=== PATIENT | male | born 1955 | race Caucasian/White ===

== ENCOUNTER 2019-04-02 14:28 | Inpatient (IN) | payer OTHER ==
[~2019-04-02] VITALS: Ht 167.6 cm; Wt 71.2 kg
[2019-04-02 16:02] LABS: BASO % 0 % (0-3); EOS # 0.4 x10^3/uL (0.0-0.7); EOS % 3 % (0-3); HEMATOCRIT 41.7 % (39.0-53.0); HEMOGLOBIN 13.9 g/dL (13.0-17.5); LYMPH # 2.2 x10^3/uL (1.0-4.8); LYMPH % 19 % (24-48); MEAN CORPUSCULAR HEMOGLOBIN 31 pg (25-35); MEAN CORPUSCULAR HGB CONC 33 g/dL (31-37); MEAN CORPUSCULAR VOLUME 92 fL (79-100); MONO # 1.1 x10^3/uL (0.0-1.1); MONO % 10 % (0-9); NEUT # 7.5 x10^3/uL (1.8-7.7); NEUT % 67 % (31-73); PLATELET COUNT 359 x10^3/uL (140-400); RED BLOOD COUNT 4.54 x10^6/uL (4.30-5.70); RED CELL DISTRIBUTION WIDTH 14.8 % (11.5-14.5); WHITE BLOOD COUNT 11.2 x10^3/uL (4.0-11.0)
[2019-04-02 16:11] LABS: PROTHROMBIN TIME PATIENT 13.2 SEC (11.7-14.0)
[2019-04-02 16:21] LABS: CALCIUM 8.5 mg/dL (8.5-10.1); CREATININE 0.9 mg/dL (0.7-1.3); GFR 84.7; POTASSIUM 5.9 mmol/L (3.5-5.1)
[2019-04-02 16:32] LABS: ALBUMIN 3.1 g/dL (3.4-5.0); ALBUMIN/GLOBULIN RATIO 0.6 (1.0-1.7); TOTAL BILIRUBIN 0.4 mg/dL (0.2-1.0); TOTAL PROTEIN 7.9 g/dL (6.4-8.2)
[2019-04-02] MEDS ORDERED: IV NORMAL SALINE 1000ML BAG 1,000 ML IV ONE (16:45)
[2019-04-02] MEDS ORDERED: PANTOPRAZOLE IV PUSH 40 MG VIAL. IVP ONE (16:45)
[2019-04-02] MEDS: PANTOPRAZOLE SODIUM IV DRIP 80 MG in IV NORMAL SALINE 100ML 100 ML IV SCH (17:02)
[2019-04-02] MEDS ORDERED: ONDANSETRON PF 4 MG/2 ML VIAL. IVP PRN (17:30)
[2019-04-02] MEDS ORDERED: TEMAZEPAM 7.5 MG CAPSULE PO PRN (17:30)
[2019-04-02] MEDS ORDERED: ACETAMINOPHEN 500 MG TABLET PO PRN (17:30)
[2019-04-02] MEDS ORDERED: MORPHINE SULFATE 2 MG/ML VIAL. IV PRN (17:30)
[2019-04-02] MEDS ORDERED: HYDROcodone/APAP 5/325MG 1 TAB TABLET PO PRN (17:30)
[2019-04-02 17:43] LABS: GASTRIC OB PAT POSITIVE (NEG)
[2019-04-02] MEDS ORDERED: SODIUM POLYSTYRENE SULFON/SORB 15 GM/60 ML ORAL.SUSP PO ONE (18:00)
--- NOTE | 2019-04-02 18:06 | PDOC1 ---
History and Physical Date of Admission Date of Admission DATE: 04/02/19 TIME: 17:59 Identification/Chief Complaint Chief Complaint melena and coffee ground emesis Source Source: Caregiver, Chart review, Patient History of Present Illness History of Present Illness Hx of PUD and H pylori, > 10 yrs ago, quit smoking x 2 mos now (remembers exact date) and occ etoh drinker, 2 days melena and now coffee ground emesis so went to ER, Refuses a EMILY, but willing to give stool sample, Hgb normal but sinus tachy 120s. On asa 81 for remote CAD with 1 existing stent and [facility] for need of GI NO abd pain, NOt on nsaid at home. STable and very conversant (long pleasant stories), K 5.,6 not on any supplementation, BUN midly high, NOrmal creat Past Medical History Cardiovascular: CAD CENTRAL NERVOUS SYSTEM: TIA GI: Other (HEp C not needing tx, - reoslved) Past Surgical History Past Surgical History: Other (EGD > 10 yrs ago) Family History Family History: Hypertension Social History Smoke: Quit ALCOHOL: occassional Drugs: None Current Medications Current Medications Current Medications Sodium Chloride 1,000 ml @ 1,000 mls/hr 1X ONCE IV Last administered on 04/02/19at 17:01; Start 04/02/19 at 16:45; Stop 04/02/19 at 17:44; Status DC Pantoprazole Sodium 80 mg/ Sodium Chloride 100 ml @ 10 mls/hr Q10H IV Last administered on 04/02/19at 17:02; Start 04/02/19 at 16:45 Pantoprazole Sodium (PROTONIX VIAL for IV PUSH) 40 mg 1X ONCE IVP Last administered on 04/02/19at 17:02; Start 04/02/19 at 16:45; Stop 04/02/19 at 16:46; Status DC Allergies Allergies: Coded Allergies: Penicillins (Verified Allergy, Intermediate, 04/02/19) ROS Review of System as per HPI, the rest 14 pt neg Physical Exam General: Alert, Oriented X3, Cooperative, No acute distress HEENT: Atraumatic, PERRLA, EOMI Lungs: Clear to auscultation, Normal air movement Heart: S1S2, no thrills, no rubs, no gallops, no murmurs, other (sinus tachy) Abdomen: Normal bowel sounds, Soft, No tenderness, No hepatosplenomegaly, No masses Male Genitals Exam: normal genitalia, normal prostate Rectal Exam: not examined PELVIC: Nml ext genitalia Extremities: No clubbing, No cyanosis, No edema, Normal pulses, No tenderness/swelling Skin: No rashes, No breakdown, No significant lesion Neuro: Normal gait, Normal speech, Strength at 5/5 X4 ext, Normal tone, Sensation intact, Cranial nerves 3-12 NL, Reflexes 2+ Psych/Mental Status: Mental status NL, Mood NL Vitals Vitals Vital Signs Date Time Temp Pulse Resp B/P (MAP) Pulse Ox O2 Delivery O2 Flow Rate FiO2 04/02/19 15:57 120 101/74 (83) 97 Room Air 04/02/19 14:35 97.7 17 97.7 Labs Labs Laboratory Tests Test 04/02/19 15:40 04/02/19 17:31 White Blood Count 11.2 x10^3/uL (4.0-11.0) Red Blood Count 4.54 x10^6/uL (4.30-5.70) Hemoglobin 13.9 g/dL (13.0-17.5) Hematocrit 41.7 % (39.0-53.0) Mean Corpuscular Volume 92 fL (79-100) Mean Corpuscular Hemoglobin 31 pg (25-35) Mean Corpuscular Hemoglobin Concent 33 g/dL (31-37) Red Cell Distribution Width 14.8 % (11.5-14.5) Platelet Count 359 x10^3/uL (140-400) Neutrophils (%) (Auto) 67 % (31-73) Lymphocytes (%) (Auto) 19 % (24-48) Monocytes (%) (Auto) 10 % (0-9) Eosinophils (%) (Auto) 3 % (0-3) Basophils (%) (Auto) 0 % (0-3) Neutrophils # (Auto) 7.5 x10^3/uL (1.8-7.7) Lymphocytes # (Auto) 2.2 x10^3/uL (1.0-4.8) Monocytes # (Auto) 1.1 x10^3/uL (0.0-1.1) Eosinophils # (Auto) 0.4 x10^3/uL (0.0-0.7) Basophils # (Auto) 0.0 x10^3/uL (0.0-0.2) Prothrombin Time 13.2 SEC (11.7-14.0) Prothromb Time International Ratio 1.0 (0.8-1.1) Activated Partial Thromboplast Time 29 SEC (24-38) Sodium Level 137 mmol/L (136-145) Potassium Level 5.9 mmol/L (3.5-5.1) Chloride Level 104 mmol/L (98-107) Carbon Dioxide Level 22 mmol/L (21-32) Anion Gap 11 (6-14) Blood Urea Nitrogen 45 mg/dL (8-26) Creatinine 0.9 mg/dL (0.7-1.3) Estimated GFR (Cockcroft-Gault) 84.7 BUN/Creatinine Ratio 50 (6-20) Glucose Level 117 mg/dL (70-99) Calcium Level 8.5 mg/dL (8.5-10.1) Total Bilirubin 0.4 mg/dL (0.2-1.0) Aspartate Amino Transf (AST/SGOT) 28 U/L (15-37) Alanine Aminotransferase (ALT/SGPT) 74 U/L (16-63) Alkaline Phosphatase 123 U/L (46-116) Total Protein 7.9 g/dL (6.4-8.2) Albumin 3.1 g/dL (3.4-5.0) Albumin/Globulin Ratio 0.6 (1.0-1.7) Gastric Fluid Occult Blood Positive (NEG) Laboratory Tests Test 04/02/19 15:40 04/02/19 17:31 White Blood Count 11.2 x10^3/uL (4.0-11.0) Red Blood Count 4.54 x10^6/uL (4.30-5.70) Hemoglobin 13.9 g/dL (13.0-17.5) Hematocrit 41.7 % (39.0-53.0) Mean Corpuscular Volume 92 fL (79-100) Mean Corpuscular Hemoglobin 31 pg (25-35) Mean Corpuscular Hemoglobin Concent 33 g/dL (31-37) Red Cell Distribution Width 14.8 % (11.5-14.5) Platelet Count 359 x10^3/uL (140-400) Neutrophils (%) (Auto) 67 % (31-73) Lymphocytes (%) (Auto) 19 % (24-48) Monocytes (%) (Auto) 10 % (0-9) Eosinophils (%) (Auto) 3 % (0-3) Basophils (%) (Auto) 0 % (0-3) Neutrophils # (Auto) 7.5 x10^3/uL (1.8-7.7) Lymphocytes # (Auto) 2.2 x10^3/uL (1.0-4.8) Monocytes # (Auto) 1.1 x10^3/uL (0.0-1.1) Eosinophils # (Auto) 0.4 x10^3/uL (0.0-0.7) Basophils # (Auto) 0.0 x10^3/uL (0.0-0.2) Prothrombin Time 13.2 SEC (11.7-14.0) Prothromb Time International Ratio 1.0 (0.8-1.1) Activated Partial Thromboplast Time 29 SEC (24-38) Sodium Level 137 mmol/L (136-145) Potassium Level 5.9 mmol/L (3.5-5.1) Chloride Level 104 mmol/L (98-107) Carbon Dioxide Level 22 mmol/L (21-32) Anion Gap 11 (6-14) Blood Urea Nitrogen 45 mg/dL (8-26) Creatinine 0.9 mg/dL (0.7-1.3) Estimated GFR (Cockcroft-Gault) 84.7 BUN/Creatinine Ratio 50 (6-20) Glucose Level 117 mg/dL (70-99) Calcium Level 8.5 mg/dL (8.5-10.1) Total Bilirubin 0.4 mg/dL (0.2-1.0) Aspartate Amino Transf (AST/SGOT) 28 U/L (15-37) Alanine Aminotransferase (ALT/SGPT) 74 U/L (16-63) Alkaline Phosphatase 123 U/L (46-116) Total Protein 7.9 g/dL (6.4-8.2) Albumin 3.1 g/dL (3.4-5.0) Albumin/Globulin Ratio 0.6 (1.0-1.7) Gastric Fluid Occult Blood Positive (NEG) VTE Prophylaxis Ordered VTE Prophylaxis Devices: Contraindicated VTE Pharmacological Prophylaxi: Contraindicated Assessment/Plan Assessment/Plan Melena x 2 days Coffee ground emesis x 1 day HX PUD and H pylori > 10 yrs ago voia EGD - s/p tripe or quadruple abx therapy Ex smoker (quit 2 mos ago) Occ etoh Recent TIA December 2018 on ASA 81 HX CAD with 1 stent Sinus tachy NO anemia POA Hyperkalemia 5.6 PLAN: 2 MN PPI gtt tele floor - sinus tachy GI consult Clears tonyt then NPO post MN Hold ASA NSAIDS IVF while NPO KAyexylate x 1 - also to get stool sample plus high K Recheck K and [facility]mr [facility] Seen at ER Dw MIdl evel FULL CODE TREVOR HEAD MD Apr 02, 2019 18:06
--- NOTE | 2019-04-02 18:21 | PHYS DOC ---
Past Medical History Past Medical History: COPD, P.U.D., TIA, Other Additional Past Medical Histor: H.PYLORI (MADDISON GOMEZ APRN) Past Surgical History: Angioplasty, Other Additional Past Surgical Histo: CARDAIC STENTS (MADDISON GOMEZ APRN) Alcohol Use: Occasionally Drug Use: Marijuana (MADDISON GOMEZ APRN) Adult General Chief Complaint Chief Complaint: GI PROBLEM HPI HPI Patient is a 63 year old male, accompanied by his friend, who presents to the emergency Department today with complaints of a black stool this morning and coughing up bright red blood. On arrival to the room patient states that he spit up some coffee-ground emesis. He reports he quit smoking cigarettes a few months ago. He denies any abdominal pain, nausea, vomiting, diarrhea, shortness of breath, chest pain, or wheezing. He states that for several days food has caused his stomach to hurt when he eats. He states he does drink alcohol but usually only drinks one time a week. He does smoke marijuana from time to time usually twice a week. Patient states that he is not in any pain at this time. He reports a history of a bleeding ulcer and H. pylori along time ago that he took protonix for but he states he no longer takes protonix. Pt states he had a TIA in December of this year and reports that he takes a baby aspirin daily since then. (MADDISON GOMEZ APRN) Review of Systems Review of Systems Constitutional: Denies fever or chills [] Eyes: Denies redness, or eye pain [] HENT: Denies nasal congestion or sore throat [] Respiratory: Denies cough or shortness of breath [] Cardiovascular: No additional information not addressed in HPI [] GI: see HPI : Denies dysuria or hematuria [] Musculoskeletal: Denies back pain or joint pain [] Integument: Denies rash or skin lesions [] Neurologic: Denies headache, focal weakness or sensory changes [] All other systems were reviewed and found to be within normal limits, except as documented in this note. (MADDISON GOMEZ APRN) Current Medications Current Medications Current Medications Medications (Trade) Dose Ordered Sig/Ana Start Time Stop Time Status Last Admin Dose Admin Acetaminophen (Tylenol) 500 mg PRN Q6HRS PRN 04/02/19 17:30 Acetaminophen/ Codeine Phosphate (Tylenol #3) 1 tab PRN Q6HRS PRN 04/02/19 17:30 Acetaminophen/ Hydrocodone Bitart (Lortab 5/325) 1 tab PRN Q4HRS PRN 04/02/19 17:30 Morphine Sulfate (Morphine Sulfate) 1 mg PRN Q2HR PRN 04/02/19 17:30 Ondansetron HCl (Zofran) 4 mg PRN Q6HRS PRN 04/02/19 17:30 Pantoprazole Sodium (PROTONIX VIAL for IV PUSH) 40 mg 1X ONCE 04/02/19 16:45 04/02/19 16:46 DC 04/02/19 17:02 40 MG Pantoprazole Sodium 80 mg/ Sodium Chloride 100 ml @ 10 mls/hr Q10H 04/02/19 16:45 04/03/19 03:08 10 MLS/HR Sodium Chloride 1,000 ml @ 100 mls/hr Q10H 04/02/19 17:30 04/03/19 00:14 100 MLS/HR Temazepam (Restoril) 7.5 mg PRN QHS PRN 04/02/19 17:30 04/02/19 21:15 7.5 MG (JEM BRADLEY DO) Allergies Allergies Allergies Coded Allergies Type Severity Reaction Last Updated Verified Penicillins Allergy Intermediate 04/02/19 Yes (JEM BRADLEY DO) Physical Exam Physical Exam Constitutional: Well developed, well nourished, no acute distress, non-toxic appearance. [] HENT: Normocephalic, atraumatic, bilateral external ears normal, oropharynx moist, no oral exudates, nose normal. [] Eyes: PERRLA, EOMI, conjunctiva normal, no discharge. [] Neck: Normal range of motion, no stridor. [] Cardiovascular:Heart rate regular tachycardic rhythm, no murmur [] Lungs & Thorax: Bilateral breath sounds clear to auscultation in upper lobes bilat, coarse in bilateral posterior bases [] Abdomen: Bowel sounds normal, soft, no tenderness, no masses, no pulsatile masses. [] Rectal exam was declined by patient. Skin: Warm, dry, no erythema, no rash. [] Back: No tenderness Extremities: No cyanosis, ROM intact, no edema. [] Neurologic: Alert and oriented X 3, no focal deficits noted. [] Psychologic: Affect normal, judgement normal, mood normal. [] (MADDISON GOMEZ APRN) Current Patient Data Vital Signs Vital Signs Date Time Temp Pulse Resp B/P (MAP) Pulse Ox O2 Delivery O2 Flow Rate FiO2 04/02/19 17:27 120 20 109/77 (88) 96 Room Air 04/02/19 14:35 97.7 97.7 (BRADLEYJEM MARTINEZ DO) Lab Values Laboratory Tests Test 04/02/19 15:40 04/02/19 17:31 White Blood Count 11.2 x10^3/uL (4.0-11.0) H Red Blood Count 4.54 x10^6/uL (4.30-5.70) Hemoglobin 13.9 g/dL (13.0-17.5) Hematocrit 41.7 % (39.0-53.0) Mean Corpuscular Volume 92 fL (79-100) Mean Corpuscular Hemoglobin 31 pg (25-35) Mean Corpuscular Hemoglobin Concent 33 g/dL (31-37) Red Cell Distribution Width 14.8 % (11.5-14.5) H Platelet Count 359 x10^3/uL (140-400) Neutrophils (%) (Auto) 67 % (31-73) Lymphocytes (%) (Auto) 19 % (24-48) L Monocytes (%) (Auto) 10 % (0-9) H Eosinophils (%) (Auto) 3 % (0-3) Basophils (%) (Auto) 0 % (0-3) Neutrophils # (Auto) 7.5 x10^3/uL (1.8-7.7) Lymphocytes # (Auto) 2.2 x10^3/uL (1.0-4.8) Monocytes # (Auto) 1.1 x10^3/uL (0.0-1.1) Eosinophils # (Auto) 0.4 x10^3/uL (0.0-0.7) Basophils # (Auto) 0.0 x10^3/uL (0.0-0.2) Prothrombin Time 13.2 SEC (11.7-14.0) Prothrombin Time INR 1.0 (0.8-1.1) Activated Partial Thromboplast Time 29 SEC (24-38) Sodium Level 137 mmol/L (136-145) Potassium Level 5.9 mmol/L (3.5-5.1) H Chloride Level 104 mmol/L (98-107) Carbon Dioxide Level 22 mmol/L (21-32) Anion Gap 11 (6-14) Blood Urea Nitrogen 45 mg/dL (8-26) H Creatinine 0.9 mg/dL (0.7-1.3) Estimated GFR (Cockcroft-Gault) 84.7 BUN/Creatinine Ratio 50 (6-20) H Glucose Level 117 mg/dL (70-99) H Calcium Level 8.5 mg/dL (8.5-10.1) Total Bilirubin 0.4 mg/dL (0.2-1.0) Aspartate Amino Transferase (AST) 28 U/L (15-37) Alanine Aminotransferase (ALT) 74 U/L (16-63) H Alkaline Phosphatase 123 U/L (46-116) H Total Protein 7.9 g/dL (6.4-8.2) Albumin 3.1 g/dL (3.4-5.0) L Albumin/Globulin Ratio 0.6 (1.0-1.7) L Gastric Fluid Occult Blood Positive (NEG) Laboratory Tests 04/02/19 15:40 Laboratory Tests 04/02/19 15:40 (JEM BRADLEY DO) EKG EKG 1453- sinus tachycardia rate 124, no STEMI read by Dr. Wheatley[] (MADDISON GOMEZ APRN) Radiology/Procedures Radiology/Procedures [] (MADDISON GOMEZ APRN) Course & Med Decision Making Course & Med Decision Making Pertinent Labs and Imaging studies reviewed. (See chart for details) dx: GI Bleed CBC WBC 11.2 Hgb and Hct WNL, PT/INR unremarkable; CMP K 5.9, BUN 45, gluc 117, BUN/Plasterer Foreman ratio 50, ALT 74, ALK phos 123; gastric occult positive Pt declined rectal exam VSS, EKG sinus tach no acute changes Pt was given 1L NS, 40 mg of IV protonix and a protonix gtt was initiated. 1735- Spoke with Dr. Feng who is the admitting physician, and care was assumed following discussion of patient. Patient's vital signs tachycardic otherwise stable. Patient remains afebrile, appears nontoxic, respirations even and unlabored. Patient will be admitted to the med/tele floor. Patient's case and plan of care also discussed with Dr. Wheatley [] (MADDISON GOMEZ APRN) Dragon Disclaimer Dragon Disclaimer This electronic medical record was generated, in whole or in part, using a voice recognition dictation system. (MADDISON GOMEZ APRN) Departure Departure Impression: Primary Impression: GI bleed Disposition: ADMITTED INPATIENT Admitting Physician: ABBY Hui) (MADDISON GOMEZ APRN) Condition: STABLE Referrals: HENRI BREWSTER MD (PCP) Attending Signature Attending Signature I have reviewed the PA/TUB WASHER's note and plan of care. I was available for consultation as needed during the patient's visit in the emergency department. I agree with the clinical impression, plan, and disposition. (JEM BRADLEY DO) Problem Qualifiers Primary Impression: GI bleed GI bleed type/associated pathology: unspecified gastrointestinal hemorrhage type Qualified Codes: K92.2 - Gastrointestinal hemorrhage, unspecified MADDISON GOMEZ APRN Apr 02, 2019 18:21 JEM BRADLEY DO Apr 03, 2019 05:27
[2019-04-02 19:00] VITALS: BP 114/80
[2019-04-02] MEDS ORDERED: ASPI81TA11 PO (20:36)
[2019-04-02] MEDS ORDERED: BUDE10.22 IH (20:36)
[2019-04-02] MEDS ORDERED: ALBU2.5V8 INH (20:36)
[2019-04-03] MEDS: IV NORMAL SALINE 1000ML BAG 1,000 ML IV SCH ×5 (00:14→23:02)
--- NOTE | 2019-04-03 01:00 | NUR ---
Awaiting patient's urine and stool samples, patient did have smear of black stool on tissue, unable to scrape any off into the cup, informed to still need specimen, and urine for culture, patient verbalizes to understand.
[2019-04-03] MEDS: PANTOPRAZOLE SODIUM IV DRIP 80 MG in IV NORMAL SALINE 100ML 100 ML IV SCH ×2 (03:08→13:20)
[2019-04-03 03:12] VITALS: BP 115/81
[2019-04-03 04:36] LABS: HEMATOCRIT 37.1 % (39.0-53.0); HEMOGLOBIN 12.3 g/dL (13.0-17.5)
[2019-04-03 07:00] VITALS: BP 117/75
[2019-04-03] MEDS ORDERED: FLU VAX QS 2019-20 (36MOS+)/PF 0.5 ML SYRINGE. VAX IM ONE (09:00)
--- NOTE | 2019-04-03 09:03 | PDOC ---
PROGRESS NOTES Chief Complaint Chief Complaint Melena x 2 days Coffee ground emesis x 1 day HX PUD and H pylori > 10 yrs ago voia EGD - s/p tripe or quadruple abx therapy Ex smoker (quit 2 mos ago) Occ etoh Recent TIA December 2018 on ASA 81 HX CAD with 1 stent Sinus tachy NO anemia POA Hyperkalemia 5.6 History of Present Illness History of Present Illness no overnight calls asleep, i did not awaken I saw him less than 2 hrs ago at ER GI has yet to see hgb 12 from normal No more reports of melena or coffee ground to me by staff K normalized after kayexylate PLAn: Await GI, keep NPO just in case Otherwise if no procedures today will be able to start clears HH tmr ff up FOBT Vitals Vitals Vital Signs Date Time Temp Pulse Resp B/P (MAP) Pulse Ox O2 Delivery O2 Flow Rate FiO2 04/03/19 07:00 97.4 117 20 117/75 (89) 96 Room Air 97.4 Physical Exam General: Alert, Oriented X3, Cooperative, No acute distress Abdomen: Normal bowel sounds, Soft, No tenderness, No hepatosplenomegaly, No masses Extremities: No clubbing, No cyanosis, No edema, Normal pulses, No tendernes s/swelling Skin: No rashes, No breakdown, No significant lesion Labs LABS Laboratory Tests Test 04/02/19 15:40 04/02/19 17:31 04/03/19 03:15 White Blood Count 11.2 x10^3/uL (4.0-11.0) Red Blood Count 4.54 x10^6/uL (4.30-5.70) Hemoglobin 13.9 g/dL (13.0-17.5) 12.3 g/dL (13.0-17.5) Hematocrit 41.7 % (39.0-53.0) 37.1 % (39.0-53.0) Mean Corpuscular Volume 92 fL (79-100) Mean Corpuscular Hemoglobin 31 pg (25-35) Mean Corpuscular Hemoglobin Concent 33 g/dL (31-37) 33 g/dL (31-37) Red Cell Distribution Width 14.8 % (11.5-14.5) Platelet Count 359 x10^3/uL (140-400) Neutrophils (%) (Auto) 67 % (31-73) Lymphocytes (%) (Auto) 19 % (24-48) Monocytes (%) (Auto) 10 % (0-9) Eosinophils (%) (Auto) 3 % (0-3) Basophils (%) (Auto) 0 % (0-3) Neutrophils # (Auto) 7.5 x10^3/uL (1.8-7.7) Lymphocytes # (Auto) 2.2 x10^3/uL (1.0-4.8) Monocytes # (Auto) 1.1 x10^3/uL (0.0-1.1) Eosinophils # (Auto) 0.4 x10^3/uL (0.0-0.7) Basophils # (Auto) 0.0 x10^3/uL (0.0-0.2) Prothrombin Time 13.2 SEC (11.7-14.0) Prothromb Time International Ratio 1.0 (0.8-1.1) Activated Partial Thromboplast Time 29 SEC (24-38) Sodium Level 137 mmol/L (136-145) Potassium Level 5.9 mmol/L (3.5-5.1) 3.9 mmol/L (3.5-5.1) Chloride Level 104 mmol/L (98-107) Carbon Dioxide Level 22 mmol/L (21-32) Anion Gap 11 (6-14) Blood Urea Nitrogen 45 mg/dL (8-26) Creatinine 0.9 mg/dL (0.7-1.3) Estimated GFR (Cockcroft-Gault) 84.7 BUN/Creatinine Ratio 50 (6-20) Glucose Level 117 mg/dL (70-99) Calcium Level 8.5 mg/dL (8.5-10.1) Total Bilirubin 0.4 mg/dL (0.2-1.0) Aspartate Amino Transf (AST/SGOT) 28 U/L (15-37) Alanine Aminotransferase (ALT/SGPT) 74 U/L (16-63) Alkaline Phosphatase 123 U/L (46-116) Total Protein 7.9 g/dL (6.4-8.2) Albumin 3.1 g/dL (3.4-5.0) Albumin/Globulin Ratio 0.6 (1.0-1.7) Gastric Fluid Occult Blood Positive (NEG) Review of Systems Review of Systems asleep Assessment and Plan Assessmemt and Plan Problems Medical Problems: (1) GI bleed Status: Acute Comment Review of Relevant I have reviewed the following items abby (where applicable) has been applied. Labs Laboratory Tests Test 04/02/19 15:40 04/02/19 17:31 04/03/19 03:15 White Blood Count 11.2 x10^3/uL (4.0-11.0) Red Blood Count 4.54 x10^6/uL (4.30-5.70) Hemoglobin 13.9 g/dL (13.0-17.5) 12.3 g/dL (13.0-17.5) Hematocrit 41.7 % (39.0-53.0) 37.1 % (39.0-53.0) Mean Corpuscular Volume 92 fL (79-100) Mean Corpuscular Hemoglobin 31 pg (25-35) Mean Corpuscular Hemoglobin Concent 33 g/dL (31-37) 33 g/dL (31-37) Red Cell Distribution Width 14.8 % (11.5-14.5) Platelet Count 359 x10^3/uL (140-400) Neutrophils (%) (Auto) 67 % (31-73) Lymphocytes (%) (Auto) 19 % (24-48) Monocytes (%) (Auto) 10 % (0-9) Eosinophils (%) (Auto) 3 % (0-3) Basophils (%) (Auto) 0 % (0-3) Neutrophils # (Auto) 7.5 x10^3/uL (1.8-7.7) Lymphocytes # (Auto) 2.2 x10^3/uL (1.0-4.8) Monocytes # (Auto) 1.1 x10^3/uL (0.0-1.1) Eosinophils # (Auto) 0.4 x10^3/uL (0.0-0.7) Basophils # (Auto) 0.0 x10^3/uL (0.0-0.2) Prothrombin Time 13.2 SEC (11.7-14.0) Prothromb Time International Ratio 1.0 (0.8-1.1) Activated Partial Thromboplast Time 29 SEC (24-38) Sodium Level 137 mmol/L (136-145) Potassium Level 5.9 mmol/L (3.5-5.1) 3.9 mmol/L (3.5-5.1) Chloride Level 104 mmol/L (98-107) Carbon Dioxide Level 22 mmol/L (21-32) Anion Gap 11 (6-14) Blood Urea Nitrogen 45 mg/dL (8-26) Creatinine 0.9 mg/dL (0.7-1.3) Estimated GFR (Cockcroft-Gault) 84.7 BUN/Creatinine Ratio 50 (6-20) Glucose Level 117 mg/dL (70-99) Calcium Level 8.5 mg/dL (8.5-10.1) Total Bilirubin 0.4 mg/dL (0.2-1.0) Aspartate Amino Transf (AST/SGOT) 28 U/L (15-37) Alanine Aminotransferase (ALT/SGPT) 74 U/L (16-63) Alkaline Phosphatase 123 U/L (46-116) Total Protein 7.9 g/dL (6.4-8.2) Albumin 3.1 g/dL (3.4-5.0) Albumin/Globulin Ratio 0.6 (1.0-1.7) Gastric Fluid Occult Blood Positive (NEG) Laboratory Tests Test 04/02/19 15:40 04/02/19 17:31 04/03/19 03:15 White Blood Count 11.2 x10^3/uL (4.0-11.0) Red Blood Count 4.54 x10^6/uL (4.30-5.70) Hemoglobin 13.9 g/dL (13.0-17.5) 12.3 g/dL (13.0-17.5) Hematocrit 41.7 % (39.0-53.0) 37.1 % (39.0-53.0) Mean Corpuscular Volume 92 fL (79-100) Mean Corpuscular Hemoglobin 31 pg (25-35) Mean Corpuscular Hemoglobin Concent 33 g/dL (31-37) 33 g/dL (31-37) Red Cell Distribution Width 14.8 % (11.5-14.5) Platelet Count 359 x10^3/uL (140-400) Neutrophils (%) (Auto) 67 % (31-73) Lymphocytes (%) (Auto) 19 % (24-48) Monocytes (%) (Auto) 10 % (0-9) Eosinophils (%) (Auto) 3 % (0-3) Basophils (%) (Auto) 0 % (0-3) Neutrophils # (Auto) 7.5 x10^3/uL (1.8-7.7) Lymphocytes # (Auto) 2.2 x10^3/uL (1.0-4.8) Monocytes # (Auto) 1.1 x10^3/uL (0.0-1.1) Eosinophils # (Auto) 0.4 x10^3/uL (0.0-0.7) Basophils # (Auto) 0.0 x10^3/uL (0.0-0.2) Prothrombin Time 13.2 SEC (11.7-14.0) Prothromb Time International Ratio 1.0 (0.8-1.1) Activated Partial Thromboplast Time 29 SEC (24-38) Sodium Level 137 mmol/L (136-145) Potassium Level 5.9 mmol/L (3.5-5.1) 3.9 mmol/L (3.5-5.1) Chloride Level 104 mmol/L (98-107) Carbon Dioxide Level 22 mmol/L (21-32) Anion Gap 11 (6-14) Blood Urea Nitrogen 45 mg/dL (8-26) Creatinine 0.9 mg/dL (0.7-1.3) Estimated GFR (Cockcroft-Gault) 84.7 BUN/Creatinine Ratio 50 (6-20) Glucose Level 117 mg/dL (70-99) Calcium Level 8.5 mg/dL (8.5-10.1) Total Bilirubin 0.4 mg/dL (0.2-1.0) Aspartate Amino Transf (AST/SGOT) 28 U/L (15-37) Alanine Aminotransferase (ALT/SGPT) 74 U/L (16-63) Alkaline Phosphatase 123 U/L (46-116) Total Protein 7.9 g/dL (6.4-8.2) Albumin 3.1 g/dL (3.4-5.0) Albumin/Globulin Ratio 0.6 (1.0-1.7) Gastric Fluid Occult Blood Positive (NEG) Medications Current Medications Sodium Chloride 1,000 ml @ 1,000 mls/hr 1X ONCE IV Last administered on at 17:01; Start 04/02/19 at 16:45; Stop 04/02/19 at 17:44; Status DC Pantoprazole Sodium 80 mg/ Sodium Chloride 100 ml @ 10 mls/hr Q10H IV Last administered on 04/03/19at 03:08; Start 04/02/19 at 16:45 Pantoprazole Sodium (PROTONIX VIAL for IV PUSH) 40 mg 1X ONCE IVP Last administered on 04/02/19at 17:02; Start 04/02/19 at 16:45; Stop 04/02/19 at 16:46; Status DC Acetaminophen (Tylenol) 500 mg PRN Q6HRS PRN PO MILD PAIN / TEMP; Start 04/02/19 at 17:30 Acetaminophen/ Codeine Phosphate (Tylenol #3) 1 tab PRN Q6HRS PRN PO MODERATE PAIN; Start 04/02/19 at 17:30 Ondansetron HCl (Zofran) 4 mg PRN Q6HRS PRN IVP NAUSEA/VOMITING; Start 04/02/19 at 17:30 Temazepam (Restoril) 7.5 mg PRN QHS PRN PO INSOMNIA Last administered on 04/02/19at 21:15; Start 04/02/19 at 17:30 Morphine Sulfate (Morphine Sulfate) 1 mg PRN Q2HR PRN IV PAIN; Start 04/02/19 at 17:30 Acetaminophen/ Hydrocodone Bitart (Lortab 5/325) 1 tab PRN Q4HRS PRN PO SEVERE PAIN; Start 04/02/19 at 17:30 Sodium Chloride 1,000 ml @ 100 mls/hr Q10H IV Last administered on 04/03/19at 00:14; Start 04/02/19 at 17:30 Sodium Polystyrene Sulfonate (Kayexalate) 15 gm 1X ONCE PO Last administered on 04/02/19at 20:30; Start 04/02/19 at 18:00; Stop 04/02/19 at 18:03; Status DC Influenza Virus Vaccine Quadrival (Afluria Quad 2019-20 (3yr Up) Syringe) 0.5 ml ONCE ONCE VAX IM ; Start 04/03/19 at 09:00; Stop 04/03/19 at 09:01 Active Scripts Active Reported Low Dose Aspirin Ec (Aspirin) 81 Mg Tablet.dr 1 Tab PO DAILY Proair Hfa Inhaler (Albuterol Sulfate) 8.5 Gm Hfa.aer.ad 1 Puff INH PRN Q6HRS PRN Symbicort 80-4.5 Mcg Inhaler (Budesonide/Formoterol Fumarate) 10.2 Gm Hfa.aer.ad 2 Puff IH BID Vitals/I & O Vital Sign - Last 24 Hours 04/02/19 04/02/19 04/02/19 04/02/19 14:35 15:02 15:27 15:57 Temp 97.7 97.7 Pulse 124 124 124 120 Resp 17 B/P (MAP) 130/72 (91) 123/74 (90) 118/70 (86) 101/74 (83) Pulse Ox 96 96 96 97 O2 Delivery Room Air Room Air Room Air Room Air 04/02/19 04/02/19 04/02/19 04/02/19 16:27 16:57 17:27 17:57 Pulse 118 122 120 116 Resp 16 20 20 20 B/P (MAP) 100/68 (79) 123/84 (97) 109/77 (88) 109/76 (87) Pulse Ox 96 97 96 95 O2 Delivery Room Air Room Air Room Air Room Air 04/02/19 04/02/19 04/03/19 04/03/19 19:00 20:20 03:12 07:00 Temp 97.6 98.1 97.4 97.6 98.1 97.4 Pulse 111 111 117 Resp 20 20 20 B/P (MAP) 114/80 (91) 115/81 (92) 117/75 (89) Pulse Ox 96 95 96 O2 Delivery Room Air Room Air Room Air Room Air Intake and Output 04/02/19 04/02/19 04/03/19 15:00 23:00 07:00 Intake Total 1100 ml Balance 1100 ml TREVOR HEAD MD Apr 03, 2019 09:03
[2019-04-03 11:00] VITALS: BP 101/69
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
[2019-04-03 15:00] VITALS: BP 122/65
[2019-04-03] MEDS ORDERED: ALBU2.5V8 INH (17:04)
[2019-04-03] MEDS ORDERED: ACETAMINOPHEN 325 MG TABLET. PO PRN (17:15)
[2019-04-03] MEDS ORDERED: ALBUTEROL SULFATE 2.5 MG/3 ML NEBU. NEB PRN (17:15)
[2019-04-03] MEDS: ACETAMINOPHEN/CODEINE 300/30MG TABLET. PO PRN (17:17)
[2019-04-03] MEDS: ALBUTEROL SULFATE 2.5 MG/3 ML NEBU. NEB SCH (18:00)
[2019-04-03 19:00] VITALS: BP 113/75
[2019-04-03 19:35] LABS: BILIRUBIN,URINE NEGATIVE (NEG); CLARITY,URINE CLEAR; COLOR,URINE YELLOW; NITRITE,URINE NEGATIVE (NEG); PROTEIN,URINE NEGATIVE (NEG-TRACE); UROBILINOGEN,URINE 0.2 mg/dL (0.2 mg/dL)
[2019-04-03 19:42] LABS: BARBITURATES NEG (NEG); BENZODIAZEPINES NEG (NEG); CANNABINOIDS POS (NEG); COCAINE NEG (NEG); METHADONE NEG (NEG); OPIATES NEG (NEG); PHENCYCLIDINE NEG (NEG)
[2019-04-03 19:44] LABS: AMPHETAMINE/METHAMPHETAMINE NEG (NEG)
[2019-04-03 19:45] LABS: BACTERIA,URINE 0 /HPF (0-FEW); RBC,URINE 0 /HPF (0-2); SQUAMOUS EPITHELIAL CELL,UR FEW /LPF
[2019-04-03] MEDS: BUDESONIDE 0.5 MG/2 ML NEBU. NEB SCH (20:06)
[2019-04-03] MEDS ORDERED: NON FORMULARY ITEM (Budesonide/Formoterol Fumarate (Symbicort 80-4.5 Mcg Inhaler) 2 PUFF) IH SCH (21:00)
[2019-04-03 23:00] VITALS: BP 114/74
[2019-04-04] VITALS (13 sets, daily range): BP systolic 98–130; BP diastolic 59–84
[2019-04-04] MEDS: ACETAMINOPHEN/CODEINE 300/30MG TABLET. PO PRN (00:16)
[2019-04-04] MEDS: PANTOPRAZOLE SODIUM IV DRIP 80 MG in IV NORMAL SALINE 100ML 100 ML IV SCH (01:15)
[2019-04-04 04:44] LABS: HEMATOCRIT 31.2 % (39.0-53.0); HEMOGLOBIN 10.2 g/dL (13.0-17.5)
[2019-04-04] MEDS: BUDESONIDE 0.5 MG/2 ML NEBU. NEB SCH ×2 (07:14→21:53)
[2019-04-04] MEDS: ALBUTEROL SULFATE 2.5 MG/3 ML NEBU. NEB SCH ×4 (07:14→19:40)
--- NOTE | 2019-04-04 08:34 | PDOC ---
PROGRESS NOTES Chief Complaint Chief Complaint Melena x 2 days Coffee ground emesis x 1 day HX PUD and H pylori > 10 yrs ago voia EGD - s/p tripe or quadruple abx therapy Ex smoker (quit 2 mos ago) Occ etoh Recent TIA December 2018 on ASA 81 HX CAD with 1 stent Sinus tachy NO anemia POA Hyperkalemia 5.6 History of Present Illness History of Present Illness headache HGb dropped to 10 today from normal on admission Still some melena per his acct but no more coffee ground emesis PLAn: EGD 10 AM friday HH tmr PPI gtt Vitals Vitals Vital Signs Date Time Temp Pulse Resp B/P (MAP) Pulse Ox O2 Delivery O2 Flow Rate FiO2 04/04/19 07:59 97.5 105 18 110/66 (81) 94 Room Air 97.5 Physical Exam General: Alert, Oriented X3 Heart: Regular rate, Normal S1, Normal S2 Abdomen: Normal bowel sounds, Soft, No tenderness, No hepatosplenomegaly Extremities: No clubbing, No cyanosis, Other (scars from previous surgeries wrist) Skin: No rashes, No breakdown, No significant lesion Labs LABS Laboratory Tests Test 04/03/19 19:26 04/04/19 04:05 Urine Collection Type Unknown Urine Color Yellow Urine Clarity Clear Urine pH 6.0 Urine Specific Perry 1.020 Urine Protein Negative mg/dL (NEG-TRACE) Urine Glucose (UA) Negative mg/dL (NEG) Urine Ketones (Stick) Negative mg/dL (NEG) Urine Blood Negative (NEG) Urine Nitrite Negative (NEG) Urine Bilirubin Negative (NEG) Urine Urobilinogen Dipstick 0.2 mg/dL (0.2 mg/dL) Urine Leukocyte Esterase Small (NEG) Urine RBC 0 /HPF (0-2) Urine WBC 5-10 /HPF (0-4) Urine Squamous Epithelial Cells Few /LPF Urine Transitional Epithelial Cells Occ /LPF Urine Bacteria 0 /HPF (0-FEW) Urine Mucus Slight /LPF Urine Opiates Screen Neg (NEG) Urine Methadone Screen Neg (NEG) Urine Barbiturates Neg (NEG) Urine Phencyclidine Screen Neg (NEG) Urine Amphetamine/Methamphetamine Neg (NEG) Urine Benzodiazepines Screen Neg (NEG) Urine Cocaine Screen Neg (NEG) Urine Cannabinoids Screen Pos (NEG) Urine Ethyl Alcohol Neg (NEG) Hemoglobin 10.2 g/dL (13.0-17.5) Hematocrit 31.2 % (39.0-53.0) Mean Corpuscular Hemoglobin Concent 33 g/dL (31-37) Review of Systems Review of Systems headache, melena, all else 14 pt neg Assessment and Plan Assessmemt and Plan Problems Medical Problems: (1) GI bleed Status: Acute Comment Review of Relevant I have reviewed the following items abby (where applicable) has been applied. Labs Laboratory Tests Test 04/02/19 15:40 04/02/19 17:31 04/03/19 03:15 04/03/19 19:26 White Blood Count 11.2 x10^3/uL (4.0-11.0) Red Blood Count 4.54 x10^6/uL (4.30-5.70) Hemoglobin 13.9 g/dL (13.0-17.5) 12.3 g/dL (13.0-17.5) Hematocrit 41.7 % (39.0-53.0) 37.1 % (39.0-53.0) Mean Corpuscular Volume 92 fL (79-100) Mean Corpuscular Hemoglobin 31 pg (25-35) Mean Corpuscular Hemoglobin Concent 33 g/dL (31-37) 33 g/dL (31-37) Red Cell Distribution Width 14.8 % (11.5-14.5) Platelet Count 359 x10^3/uL (140-400) Neutrophils (%) (Auto) 67 % (31-73) Lymphocytes (%) (Auto) 19 % (24-48) Monocytes (%) (Auto) 10 % (0-9) Eosinophils (%) (Auto) 3 % (0-3) Basophils (%) (Auto) 0 % (0-3) Neutrophils # (Auto) 7.5 x10^3/uL (1.8-7.7) Lymphocytes # (Auto) 2.2 x10^3/uL (1.0-4.8) Monocytes # (Auto) 1.1 x10^3/uL (0.0-1.1) Eosinophils # (Auto) 0.4 x10^3/uL (0.0-0.7) Basophils # (Auto) 0.0 x10^3/uL (0.0-0.2) Prothrombin Time 13.2 SEC (11.7-14.0) Prothromb Time International Ratio 1.0 (0.8-1.1) Activated Partial Thromboplast Time 29 SEC (24-38) Sodium Level 137 mmol/L (136-145) Potassium Level 5.9 mmol/L (3.5-5.1) 3.9 mmol/L (3.5-5.1) Chloride Level 104 mmol/L (98-107) Carbon Dioxide Level 22 mmol/L (21-32) Anion Gap 11 (6-14) Blood Urea Nitrogen 45 mg/dL (8-26) Creatinine 0.9 mg/dL (0.7-1.3) Estimated GFR (Cockcroft-Gault) 84.7 BUN/Creatinine Ratio 50 (6-20) Glucose Level 117 mg/dL (70-99) Calcium Level 8.5 mg/dL (8.5-10.1) Total Bilirubin 0.4 mg/dL (0.2-1.0) Aspartate Amino Transf (AST/SGOT) 28 U/L (15-37) Alanine Aminotransferase (ALT/SGPT) 74 U/L (16-63) Alkaline Phosphatase 123 U/L (46-116) Total Protein 7.9 g/dL (6.4-8.2) Albumin 3.1 g/dL (3.4-5.0) Albumin/Globulin Ratio 0.6 (1.0-1.7) Gastric Fluid Occult Blood Positive (NEG) Urine Collection Type Unknown Urine Color Yellow Urine Clarity Clear Urine pH 6.0 Urine Specific Perry 1.020 Urine Protein Negative mg/dL (NEG-TRACE) Urine Glucose (UA) Negative mg/dL (NEG) Urine Ketones (Stick) Negative mg/dL (NEG) Urine Blood Negative (NEG) Urine Nitrite Negative (NEG) Urine Bilirubin Negative (NEG) Urine Urobilinogen Dipstick 0.2 mg/dL (0.2 mg/dL) Urine Leukocyte Esterase Small (NEG) Urine RBC 0 /HPF (0-2) Urine WBC 5-10 /HPF (0-4) Urine Squamous Epithelial Cells Few /LPF Urine Transitional Epithelial Cells Occ /LPF Urine Bacteria 0 /HPF (0-FEW) Urine Mucus Slight /LPF Urine Opiates Screen Neg (NEG) Urine Methadone Screen Neg (NEG) Urine Barbiturates Neg (NEG) Urine Phencyclidine Screen Neg (NEG) Urine Amphetamine/Methamphetamine Neg (NEG) Urine Benzodiazepines Screen Neg (NEG) Urine Cocaine Screen Neg (NEG) Urine Cannabinoids Screen Pos (NEG) Urine Ethyl Alcohol Neg (NEG) Test 04/04/19 04:05 Hemoglobin 10.2 g/dL (13.0-17.5) Hematocrit 31.2 % (39.0-53.0) Mean Corpuscular Hemoglobin Concent 33 g/dL (31-37) Laboratory Tests Test 04/03/19 19:26 04/04/19 04:05 Urine Collection Type Unknown Urine Color Yellow Urine Clarity Clear Urine pH 6.0 Urine Specific Perry 1.020 Urine Protein Negative mg/dL (NEG-TRACE) Urine Glucose (UA) Negative mg/dL (NEG) Urine Ketones (Stick) Negative mg/dL (NEG) Urine Blood Negative (NEG) Urine Nitrite Negative (NEG) Urine Bilirubin Negative (NEG) Urine Urobilinogen Dipstick 0.2 mg/dL (0.2 mg/dL) Urine Leukocyte Esterase Small (NEG) Urine RBC 0 /HPF (0-2) Urine WBC 5-10 /HPF (0-4) Urine Squamous Epithelial Cells Few /LPF Urine Transitional Epithelial Cells Occ /LPF Urine Bacteria 0 /HPF (0-FEW) Urine Mucus Slight /LPF Urine Opiates Screen Neg (NEG) Urine Methadone Screen Neg (NEG) Urine Barbiturates Neg (NEG) Urine Phencyclidine Screen Neg (NEG) Urine Amphetamine/Methamphetamine Neg (NEG) Urine Benzodiazepines Screen Neg (NEG) Urine Cocaine Screen Neg (NEG) Urine Cannabinoids Screen Pos (NEG) Urine Ethyl Alcohol Neg (NEG) Hemoglobin 10.2 g/dL (13.0-17.5) Hematocrit 31.2 % (39.0-53.0) Mean Corpuscular Hemoglobin Concent 33 g/dL (31-37) Medications Current Medications Sodium Chloride 1,000 ml @ 1,000 mls/hr 1X ONCE IV Last administered on 04/02/19at 17:01; Start 04/02/19 at 16:45; Stop 04/02/19 at 17:44; Status DC Pantoprazole Sodium 80 mg/ Sodium Chloride 100 ml @ 10 mls/hr Q10H IV Last administered on 04/04/19at 01:15; Start 04/02/19 at 16:45 Pantoprazole Sodium (PROTONIX VIAL for IV PUSH) 40 mg 1X ONCE IVP Last admi nistered on 04/02/19at 17:02; Start 04/02/19 at 16:45; Stop 04/02/19 at 16:46; Status DC Acetaminophen (Tylenol) 500 mg PRN Q6HRS PRN PO MILD PAIN / TEMP; Start 04/02/19 at 17:30; Stop 04/03/19 at 17:19; Status DC Acetaminophen/ Codeine Phosphate (Tylenol #3) 1 tab PRN Q6HRS PRN PO MODERATE PAIN Last administered on 04/04/19at 00:16; Start 04/02/19 at 17:30 Ondansetron HCl (Zofran) 4 mg PRN Q6HRS PRN IVP NAUSEA/VOMITING; Start 04/02/19 at 17:30 Temazepam (Restoril) 7.5 mg PRN QHS PRN PO INSOMNIA Last administered on 04/02/19at 21:15; Start 04/02/19 at 17:30 Morphine Sulfate (Morphine Sulfate) 1 mg PRN Q2HR PRN IV PAIN; Start 04/02/19 at 17:30 Acetaminophen/ Hydrocodone Bitart (Lortab 5/325) 1 tab PRN Q4HRS PRN PO SEVERE PAIN; Start 04/02/19 at 17:30 Sodium Chloride 1,000 ml @ 100 mls/hr Q10H IV Last administered on 04/03/19at 23:02; Start 04/02/19 at 17:30 Sodium Polystyrene Sulfonate (Kayexalate) 15 gm 1X ONCE PO Last administered on 04/02/19at 20:30; Start 04/02/19 at 18:00; Stop 04/02/19 at 18:03; Status DC Influenza Virus Vaccine Quadrival (Afluria Quad 2019-20 (3yr Up) Syringe) 0.5 ml ONCE ONCE VAX IM ; Start 04/03/19 at 09:00; Stop 04/03/19 at 09:01; Status DC Non-Formulary Medication (Budesonide/ Formoterol Fumarate (Symbicort 80-4.5 Mcg Inhaler)) 2 puff BID IH ; Start 04/03/19 at 21:00; Status UNV Acetaminophen (Tylenol) 650 mg PRN Q6HRS PRN PO PAIN; Start 04/03/19 at 17:15 Albuterol Sulfate (Ventolin Neb Soln) 2.5 mg PRN Q4HRS PRN NEB SHORTNESS OF BREATH Last administered on 04/03/19at 17:20; Start 04/03/19 at 17:15 Albuterol Sulfate (Ventolin Neb Soln) 2.5 mg Q6HRS NEB Last administered on at 07:14; Start 04/03/19 at 18:00 Budesonide (Pulmicort) 0.5 mg RTBID NEB Last administered on 04/04/19at 07:14; Start 04/03/19 at 20:00 Active Scripts Active Reported Proair Hfa Inhaler (Albuterol Sulfate) 8.5 Gm Hfa.aer.ad 1 Puff INH PRN Q6HRS PRN Low Dose Aspirin Ec (Aspirin) 81 Mg Tablet.dr 1 Tab PO DAILY Proair Hfa Inhaler (Albuterol Sulfate) 8.5 Gm Hfa.aer.ad 1 Puff INH PRN Q6HRS PRN Symbicort 80-4.5 Mcg Inhaler (Budesonide/Formoterol Fumarate) 10.2 Gm Hfa.aer.ad 2 Puff IH BID Vitals/I & O Vital Sign - Last 24 Hours 04/03/19 04/03/19 04/03/19 04/03/19 11:00 15:00 17:17 17:22 Temp 97.7 97.7 97.7 97.7 Pulse 88 97 Resp 18 18 B/P (MAP) 101/69 (80) 122/65 (84) Pulse Ox 96 95 98 O2 Delivery Room Air Room Air Room Air Room Air 04/03/19 04/03/19 04/03/19 04/03/19 18:17 19:00 19:50 20:00 Temp 97.8 97.8 Pulse 91 Resp 18 B/P (MAP) 113/75 (88) Pulse Ox 97 92 97 O2 Delivery Room Air Room Air Room Air Room Air 04/03/19 04/04/19 04/04/19 04/04/19 23:00 00:16 01:16 03:00 Temp 98.2 97.8 98.2 97.8 Pulse 98 87 Resp 18 18 B/P (MAP) 114/74 (87) 116/65 (82) Pulse Ox 93 93 93 92 O2 Delivery Room Air Room Air Room Air Room Air 04/04/19 04/04/19 07:16 07:59 Temp 97.5 97.5 Pulse 105 Resp 18 B/P (MAP) 110/66 (81) Pulse Ox 93 94 O2 Delivery Room Air Room Air Intake and Output 04/03/19 04/03/19 04/04/19 15:00 23:00 07:00 Intake Total 0 ml 360 ml Balance 0 ml 360 ml TREVOR HEAD MD Apr 04, 2019 08:34
[2019-04-04] MEDS: IV NORMAL SALINE 1000ML BAG 1,000 ML IV SCH (08:58)
--- NOTE | 2019-04-04 10:20 | NUR ---
To Outpatient per wheelchair, report to Luisa.
[2019-04-04] MEDS ORDERED: IV RINGERS,LACTATED 1000ML 1,000 ML IV SCH (10:22)
[2019-04-04] MEDS ORDERED: PROPOFOL 20 ML IV ONE (10:39)
--- NOTE | 2019-04-04 11:30 | PDOC4 ---
PROCEDURE Procedure EGD with bx and dilation GI bleeding, GERD, dysphagia anesthesia with propofol coughing c/w COPD Findings E- distal esophagitis with ulcers (5-8 mm- some recent bleeding) and stricture- bx and dilated ([place] 54 fr) 4 cm hiatal hernia G- gastritis with small ulcers (no bleeding) D- duodenitis without ulcers NO ACTIVE BLEEDING SEEN Plan- PPI BID soft diet ok to d/c soon- even today if stable DAO CHEATHAM MD Apr 04, 2019 11:30
[2019-04-04] MEDS: PANTOPRAZOLE 40 MG TABLET.DR. PO SCH ×2 (12:08→16:20)
--- NOTE | 2019-04-04 12:16 | NUR ---
Patient return from Outpatient per wheelchair. Patient alert and oriented times four and verb. understanding frequent VS check, up with assist, medications and FLD. IV infiltrated and dc'd. See orders and VS record. Continue cares and monitor.
--- NOTE | 2019-04-04 13:06 | NUR ---
See orders, Dr. Feng notified patient IV infiltration and insertion 2 hrs. ago. OK to leave out. Patient verb. understanding POC: continue to monitor today, adv. diet as tolerated, recheck H/H in morning, if stable probable discharge, but Dr. Feng does not want to discharge patient today as she discussed with him on rounds this morning and wants recheck of H/H in morning. Patient verb. understanding POC and agreeable.
[2019-04-05] MEDS: ACETAMINOPHEN/CODEINE 300/30MG TABLET. PO PRN (00:35)
[2019-04-05 02:51] VITALS: BP 90/63
[2019-04-05 04:21] LABS: HEMATOCRIT 30.1 % (39.0-53.0); HEMOGLOBIN 10.3 g/dL (13.0-17.5)
[2019-04-05 07:00] VITALS: BP 108/65
[2019-04-05] MEDS: BUDESONIDE 0.5 MG/2 ML NEBU. NEB SCH (07:08)
[2019-04-05] MEDS: ALBUTEROL SULFATE 2.5 MG/3 ML NEBU. NEB SCH ×2 (07:08)
[2019-04-05] MEDS ORDERED: PANT40TA77 PO (07:38)
[2019-04-05] MEDS: PANTOPRAZOLE 40 MG TABLET.DR. PO SCH (07:49)
--- NOTE | 2019-04-05 08:23 | EKG ---
[facility] [address] [place] [id number] Test Date: 2019-04-02 Test Time: 14:53:44 Pat Name: MOHAN PATTERSON Department: Room: [facility] 1 Gender: M Manager Primary Care: : 1955 Requested By: TREVOR HEAD Order Number: [id number] Reading MD: Measurements Intervals [place] Rate: 123 P: 45 MO: 138 QRS: 57 QRSD: 72 T: 55 QT: 288 QTc: 417 Interpretive Statements SINUS TACHYCARDIA OTHERWISE NORMAL ECG No previous ECG available for comparison
--- NOTE | 2019-04-05 09:20 | NUR ---
Discharge Note: MOHAN PATTERSON Discharge instructions and discharge home medications reviewed with Patient and a copy given. All questions have been answered and understanding verbalized. The following instructions and handouts were given: discharge instructions, new prescription, education and follow up recommendations. Discontinued lines and drains: Peripheral IV discontinued intact. Patient discharged to Home or Self Care with Friend via Ambulated off unit by RN.
--- NOTE | 2019-04-05 09:27 | PDOC3 ---
Discharge Summary Visit Information Date of Admission: Apr 02, 2019 Date of Discharge: Apr 05, 2019 Admitting Diagnosis Comment: PUD, Esophageal and gastric ulcer s.p EGD 04/04 Acuet precip drop hgb -stabilized (not needing BT) Ex smoker - quit Occ drinker Final Diagnosis Problems Medical Problems: (1) GI bleed Status: Acute Brief Hospital Course Allergies Allergies Coded Allergies Type Severity Reaction Last Updated Verified Penicillins Allergy Intermediate 04/02/19 Yes Vital Signs Vital Signs Date Time Temp Pulse Resp B/P (MAP) Pulse Ox O2 Delivery O2 Flow Rate FiO2 04/05/19 08:00 Room Air 04/05/19 07:10 98 04/05/19 07:00 98.1 119 18 108/65 (79) 98.1 04/05/19 01:35 2.0 Lab Results Laboratory Tests Test 04/03/19 19:26 04/04/19 04:05 04/05/19 03:20 Urine Collection Type Unknown Urine Color Yellow Urine Clarity Clear Urine pH 6.0 Urine Specific [place] 1.020 Urine Protein Negative mg/dL (NEG-TRACE) Urine Glucose (UA) Negative mg/dL (NEG) Urine Ketones (Stick) Negative mg/dL (NEG) Urine Blood Negative (NEG) Urine Nitrite Negative (NEG) Urine Bilirubin Negative (NEG) Urine Urobilinogen Dipstick 0.2 mg/dL (0.2 mg/dL) Urine Leukocyte Esterase Small (NEG) Urine RBC 0 /HPF (0-2) Urine WBC 5-10 /HPF (0-4) Urine Squamous Epithelial Cells Few /LPF Urine Transitional Epithelial Cells Occ /LPF Urine Bacteria 0 /HPF (0-FEW) Urine Mucus Slight /LPF Urine Opiates Screen Neg (NEG) Urine Methadone Screen Neg (NEG) Urine Barbiturates Neg (NEG) Urine Phencyclidine Screen Neg (NEG) Urine Amphetamine/Methamphetamine Neg (NEG) Urine Benzodiazepines Screen Neg (NEG) Urine Cocaine Screen Neg (NEG) Urine Cannabinoids Screen Pos (NEG) Urine Ethyl Alcohol Neg (NEG) Hemoglobin 10.2 g/dL (13.0-17.5) 10.3 g/dL (13.0-17.5) Hematocrit 31.2 % (39.0-53.0) 30.1 % (39.0-53.0) Mean Corpuscular Hemoglobin Concent 33 g/dL (31-37) 34 g/dL (31-37) Laboratory Tests Test 04/05/19 03:20 Hemoglobin 10.3 g/dL (13.0-17.5) Hematocrit 30.1 % (39.0-53.0) Mean Corpuscular Hemoglobin Concent 34 g/dL (31-37) Brief Hospital Course Mr. Sanford is a 63 old ex smoker, quit 2 mos ago and occ etoh drinker, came in for melena and coffee ground emesis,Was not on any OAC of nSAIDs,.. HGb14 on admit and droped to 10,. EGD done showed ulcers and gastric and esophageal but NONE bleeding, Hgb stopped dropping and dcd stable, cleared by GI, NO more recurrence of UGIB sxs Consults: GI Proc EGD on a friday Discharge Information Condition at Discharge: Improved, Stable Follow Up: Weeks ([place]) Disposition/Orders: D/C to Home Scheduled Budesonide/Formoterol Fumarate (Symbicort 80-4.5 Mcg Inhaler) 10.2 Gm Hfa.aer.ad, 2 PUFF IH BID for copd, #10.2 Ref 5 (Reported) Entered as Reported by: QUE HARDIN on 04/02/192035 Last Action: Converted on 04/03/191703 by AMELIA GARY Pantoprazole Sodium (Pantoprazole Sodium ) 40 Mg Tablet.dr, 40 MG PO BIDAC for PUD by EGD, #60 Prescribed by: TREVOR HEAD on 04/05/19 0738 Scheduled PRN Albuterol Sulfate (Proair Hfa Inhaler) 8.5 Gm Hfa.aer.ad, 1 PUFF INH PRN Q6HRS PRN for SHORTNESS OF BREATH, Ref 0 (Reported) Entered as Reported by: QUE HARDIN on 04/02/192035 Last Action: New Order on 04/02/192035 by QUE HARDIN Albuterol Sulfate (Proair Hfa Inhaler) 8.5 Gm Hfa.aer.ad, 1 PUFF INH PRN Q6HRS PRN for SHORTNESS OF BREATH, Ref 0 (Reported) Entered as Reported by: AMELIA GARY on 04/03/191703 Last Action: New Order on 04/03/191703 by AMELIA GARY Discontinued Medications Aspirin (Low Dose Aspirin Ec) 81 Mg Tablet., 1 TAB PO DAILY for thinner, #30 Ref 3 (Reported) Entered as Reported by: QUE HARDIN on 04/02/192035 Last Action: New Order on 04/02/192035 by TREVOR MASSEY MD Apr 05, 2019 09:26
--- NOTE | 2019-04-06 16:06 | PATHOLOGY ---
[facility] Accession Number: [id number] . 01 Material submitted: . PART A: stomach - ANTRAL BIOPSY PART B: esophagus - DISTAL ESOPHAGEAL ULCERS. Modifiers: distal . 01 Clinical history: . Pre-OP DX: GI bleeding Post-OP DX: Ulcers, rule out H. pylori . 02 Diagnosis: A. Gastric biopsies, antral ulcers: - Reactive gastropathy with mild chronic and focal slight acute inflammation. . B. Esophageal biopsy, esophageal ulcer: - Segment of hyperplastic squamous esophageal mucosa with focal granulation tissue and acute and chronic inflammation, consistent with reflux esophagitis with ulceration. (JPM:lexi; 04/06/2019) S 04/06/2019 1520 Local . 02 Comment: Sections of the gastric antral biopsy show congestion, focal foveolar hyperplasia, and mild chronic and focal slight acute inflammation. A properly controlled immunoperoxidase stain for Helicobacter is negative for Helicobacter organisms. The findings are consistent with a reactive gastropathy. There is no evidence of malignancy. . Sections of the distal esophageal biopsy reveal a segment of hyperplastic squamous esophageal mucosa with focal granulation tissue and acute and chronic inflammation. The findings are consistent with reflux esophagitis with ulceration. There is no evidence of Figueroa's change, dysplasia, or malignancy. (JPM:lexi; 04/06/2019) . . Special stain performed: Immunoperoxidase stain for Helicobacter on A1. . 02 Electronically signed: . Long Casey MD, Pathologist NPI- [id number] . 01 Gross description: . A. Received in formalin labeled "Juvenal, Kieran, antral ulcers," are 2 segments of tierney soft tissue measuring 0.9 x 0.3 x 0.2 cm in aggregate dimensions and ranging from 0.4 to 0.5 cm in maximum dimension. The specimen is submitted entirely in cassette A1. . B. Received in formalin labeled "Juvenal, Kieran, distal esophageal ulcers," is a single segment of tierney soft tissue measuring 0.6 cm in maximum dimension. The specimen is entirely submitted in cassette B1. (TSD; 04/05/2019) TOB/TOB 04/05/2019 1740 Local . 02 Pathologist provided ICD-10: K31.9, K29.00, K29.50, K21.0 . 02 CPT . 181851, 700988, [id number] Specimen Comment: A courtesy copy of this report has been sent to [phone], [phone]- Specimen Comment: [id number], Specimen Comment: Report sent to , and Performed at: 01 [facility] [address] [facility] [address], [place] [id number] MD Michael Arredondo MD Phone: [phone] Performed at: [address] [facility] [address], [place] [id number] MD Long Casey MD Phone: [phone]
== END 2019-04-05 09:38 | disposition home or self-care (01) | DRG 381 ==
LOC: ER 14:28 → 5 SOUTH 17:35
PROVIDERS: ADMIT Internal Medicine; ATTEND Internal Medicine
PROC: 0D738ZZ Dilation of Lower Esophagus, Via Natural or Artificial Opening Endoscopic (ICD-10-PCS; 2019-04-04)
PROC: 0DB38ZX Excision of Lower Esophagus, Via Natural or Artificial Opening Endoscopic, Diagnostic (ICD-10-PCS; principal; 2019-04-04 10:08)
PROC: 0DB78ZX Excision of Stomach, Pylorus, Via Natural or Artificial Opening Endoscopic, Diagnostic (ICD-10-PCS; 2019-04-04 10:08)
DX: K22.11 Ulcer of esophagus with bleeding (principal); R71.0 Precipitous drop in hematocrit; K29.70 Gastritis, unspecified, without bleeding; K25.4 Chronic or unspecified gastric ulcer with hemorrhage; E87.5 Hyperkalemia; J44.9 Chronic obstructive pulmonary disease, unspecified; I25.10 Atherosclerotic heart disease of native coronary artery without angina pectoris; K29.80 Duodenitis without bleeding; K21.0 Gastro-esophageal reflux disease with esophagitis; K44.9 Diaphragmatic hernia without obstruction or gangrene; Z87.891 Personal history of nicotine dependence; Z79.82 Long term (current) use of aspirin; Z86.73 Personal history of transient ischemic attack (TIA), and cerebral infarction without residual deficits; Z87.11 Personal history of peptic ulcer disease; Z88.0 Allergy status to penicillin; Z82.49 Family history of ischemic heart disease and other diseases of the circulatory system
CPT/HCPCS: 36415; 43233; 43239; 80053; 80307; 81001; 82271; 84132; 85014; 85018; 85025; 85610; 85730; 87086; 88305; 88342; 90471; 90686; 93005; 94640; 94760; 96361; 96374; C9113; J2704; J7030; J7613; J7626; 99285-25; G0378